=== PATIENT | male | born 1930 | race Caucasian/White ===

== ENCOUNTER → 2016-06-06 | Outpatient (CLI) | payer MEDICARE, BC ==
--- NOTE | 2016-06-06 12:29 | ECHOF ---
Referral Reason:I10 Htn MEASUREMENTS -------- HEIGHT: 167.6 cm WEIGHT: 107.5 kg BP: IVSd: 1.0 cm (0.6 - 1.1) LVIDd: 4.5 cm (3.9 - 5.3) LVPWd: 1.3 cm (0.6 - 1.1) IVSs: 1.2 cm LVIDs: 2.5 cm LVPWs: 1.5 cm Ao Diam: 3.9 cm (2.0 - 3.7) AV Cusp: 2.1 cm (1.5 - 2.6) LA Diam: 2.9 cm (2.7 - 3.8) MV EXCURSION: 13.666 mm (> 18.000) MV EF SLOPE: 48 mm/s (70 - 150) EPSS: 1.0 cm MV E Bebeto: 0.80 m/s MV DecT: 299 ms MV A Bebeto: 1.17 m/s MV E/A Ratio: 0.69 RAP: 5.00 mmHg RVSP: 12.51 mmHg FINDINGS -------- Sinus rhythm. This was a technically adequate study. There is mild concentric left ventricular hypertrophy. Overall left ventricular systolic function is normal with, an EF between 55 - 60 %. The right ventricle is normal in size and function. The left atrium is normal in size. The right atrium is normal in size. The aortic valve is trileaflet, and appears structurally normal. No aortic stenosis or regurgitation. The mitral valve leaflets are mildly thickened. Mild mitral regurgitation is present. Mild tricuspid regurgitation present. The right ventricular systolic pressure, as measured by Doppler, is 12.51mmHg. Pulmonic valve appears structurally normal. The aortic root size is normal. The pericardium is normal. CONCLUSIONS -------- 1. Sinus rhythm. 2. Mild mitral regurgitation is present. 3. Mild tricuspid regurgitation present. 4. The right ventricular systolic pressure, as measured by Doppler, is 12.51mmHg. 5. Pulmonic valve appears structurally normal. 6. The aortic root size is normal. 7. The pericardium is normal. 8. This was a technically adequate study. 9. There is mild concentric left ventricular hypertrophy. 10. Overall left ventricular systolic function is normal with, an EF between 55 - 60 %. 11. The right ventricle is normal in size and function. 12. The left atrium is normal in size. 13. The right atrium is normal in size. 14. The aortic valve is trileaflet, and appears structurally normal. No aortic stenosis or regurgitation. 15. The mitral valve leaflets are mildly thickened. CELERY TIER: Erika Houston RDCS
== END | disposition home or self-care (01) ==
LOC: RADECHMAIN 11:25
PROVIDERS: ATTEND Family Medicine
DX: I08.1 Rheumatic disorders of both mitral and tricuspid valves (principal); I10 Essential (primary) hypertension
CPT/HCPCS: 93306

== ENCOUNTER 2016-06-15 17:00 | Emergency (ER) | payer MEDICARE, BC ==
[2016-06-15 17:34] VITALS: RESP 18
--- NOTE | 2016-06-15 17:49 | ED ---
General Adult HPI - General Chief complaint: Urogenital Stated complaint: Unable to urinate Time Seen by Provider: 06/15/16 17:42 Source: patient, RN notes reviewed Mode of arrival: ambulatory Limitations: no limitations - History of Present Illness Initial comments: Patient is an 85-year-old male who presents emergency room today with chief complaint of urinary retention. He does admit that he is not able to void in the last 5 hours. Patient states that he has had issues in the past does see a urologist Dr. Patterson. States he has had full catheter is in the past. Patient does admit some pressure in lower abdomen. Patient denies infectious symptoms. Patient denies any recent fever, chills, shortness of breath, chest pain, back pain, nausea or vomiting, numbness or tingling, constipation or diarrhea, headaches or visual changes, or any other complaints. - Related Data Home Medications Medication Instructions Recorded Confirmed Albuterol Nebulized [Ventolin 2.5 mg INHALATION RT-QID PRN 06/15/16 06/15/16 Nebulized] Albuterol Sulfate [Proair Hfa] 1 - 2 puff INHALATION RT-Q6H PRN 06/15/16 Atenolol [Tenormin] 25 mg PO DAILY 06/15/16 06/15/16 Budesonide/Formoterol Fumarate 2 puff INHALATION RT-BID 06/15/16 06/15/16 [Symbicort 160-4.5 Mcg Inhaler] Cholecalciferol [Vitamin D3] 2,000 unit PO DAILY 06/15/16 06/15/16 Clopidogrel [Plavix] 75 mg PO DAILY 06/15/16 06/15/16 Furosemide [Lasix] 20 mg PO BID 06/15/16 06/15/16 LORazepam [Ativan] 1 mg PO BID 06/15/16 06/15/16 Lactulose [Constulose] 20 gm PO BID 06/15/16 06/15/16 Minocycline HCl [Minocin] 100 mg PO Q12HR 06/15/16 06/15/16 Psyllium Husk 100% [Metamucil] 6 gm PO BID 06/15/16 06/15/16 Simvastatin [Zocor] 20 mg PO HS 06/15/16 06/15/16 Vitamin B Complex 1 cap PO DAILY 06/15/16 06/15/16 metFORMIN HCL 1,000 mg PO BID 06/15/16 06/15/16 Previous Rx's Medication Instructions Recorded Sulfamethox-Tmp 800-160Mg [Bactrim 1 tab PO Q12HR #14 tab 06/15/16 DS 800-160 mg] Allergies Allergy/AdvReac Type Severity Reaction Status Date / Time aspirin Allergy Unknown Verified 06/15/16 18:05 Review of Systems ROS Statement: Those systems with pertinent positive or pertinent negative responses have been documented in the HPI. ROS Other: All systems not noted in ROS Statement are negative. Past Medical History Past Medical History: Heart Failure, COPD, Diabetes Mellitus, Hypertension History of Any Multi-Drug Resistant Organisms: None Reported Past Surgical History: No Surgical Hx Reported Past Psychological History: No Psychological Hx Reported Smoking Status: Never smoker Past Alcohol Use History: None Reported Past Drug Use History: None Reported General Exam - General Exam Comments Initial Comments: General: The patient is awake and alert, in no distress, and does not appear acutely ill. Eye: Pupils are equal, round and reactive to light, extra-ocular movements are intact. No nystagmus. There is normal conjunctiva bilaterally. No signs of icterus. Ears, nose, mouth and throat: There are moist mucous membranes and no oral lesions. Neck: The neck is supple, there is no tenderness or JVD. Cardiovascular: There is a regular rate and rhythm. No murmur, rub or gallop is appreciated. Respiratory: Lungs are clear to auscultation, respirations are non-labored, breath sounds are equal. No wheezes, stridor, rales, or rhonchi. Gastrointestinal: No appearance or abdomen. Normal bowel sounds. Abdomen soft on palpation. Patient does have mild tenderness suprapubic over the bladder. No rebound tenderness. No guarding. No CVA tenderness. Musculoskeletal: Normal ROM, no tenderness. Strength 5/5. Sensation intact. Pulses equal bilaterally 2+. Neurological: A&O x 3. CN II-XII intact, There are no obvious motor or sensory deficits. Coordination appears grossly intact. Speech is normal. Skin: Skin is warm and dry and no rashes or lesions are noted. Psychiatric: Cooperative, appropriate mood & affect, normal judgment. Limitations: no limitations Course Vital Signs 06/15/16 17:30 Temperature 97.7 F Pulse Rate 69 Respiratory 18 Rate Blood Pressure 167/73 O2 Sat by Pulse 99 Oximetry Medical Decision Making - Medical Decision Making Patient reexamined at this time shows no signs of distress. Patient's bladder scan did show greater than 500 mL. Full catheter was placed. Patient feeling much better after Richards catheter. Abdomen soft nontender. Patient's urinalysis reviewed and does show 14 white cells. Will be started on antibiotic. Given starter pack of Bactrim here in the emergency room. Is advised follow-up with his urologist over the next 2 days. Advised return here to emergency room if any symptoms increase or worsen or for any other concerns. - Lab Data Lab Results 06/15/16 Range/Units 17:55 Urine Color Yellow Urine Appearance Clear (Clear) Urine pH 7.0 (5.0-8.0) Ur Specific [place] 1.008 (1.001-1.035) Urine Protein Negative (Negative) Urine Glucose (UA) Negative (Negative) Urine Ketones Negative (Negative) Urine Blood Negative (Negative) Urine Nitrate Negative (Negative) Urine Bilirubin Negative (Negative) Urine Urobilinogen <2.0 (<2.0) mg/dL Ur Leukocyte Esterase Trace H (Negative) Urine RBC 3 (0-5) /hpf Urine WBC 14 H (0-5) /hpf Ur Squamous Epith Cells 1 (0-4) /hpf Urine Bacteria Rare H (None) /hpf Urine Mucus Rare H (None) /hpf Disposition Clinical Impression: Urinary retention, UTI (urinary tract infection) Disposition: HOME SELF-CARE Condition: Good Instructions: Urinary Retention in Men (ED) Additional Instructions: Please follow-up with the urologist over the next 2 days. Please leave Richards catheter in place until follow-up. Please use antibiotic as prescribed. Please return to emergency room for any other concerns. Prescriptions: Sulfamethox-Tmp 800-160Mg [Bactrim DS 800-160 mg] 1 tab PO Q12HR #14 tab Referrals: Bebeto Gross MD [Primary Care Provider] - 1-2 days Curtis Patterson MD [STAFF PHYSICIAN] - 1-2 days Time of Disposition: 18:51
[2016-06-15 18:43] LABS: Appearance,Urine Clear (Clear); Bacteria,Urine Rare /hpf; Bilirubin,Urine Negative (Negative); Glucose,Urine (UA) Negative (Negative); Ketones,Urine Negative (Negative); Leukocyte Esterase,Urine Trace (Negative); Mucus,Urine Rare /hpf; Nitrite,Urine Negative (Negative); Particle Count 2727; Protein,Urine Negative (Negative); RBC,Urine 3 /hpf (0-5); Specific Gravity,Urine 1.008 (1.001-1.035); Squamous Epithelial Cell,Urine 1 /hpf (0-4); UA Billing (MACRO vs. MICRO) MICRO; Urobilinogen,Urine <2.0 mg/dL (<2.0); WBC,Urine 14 /hpf (0-5)
[2016-06-15] MEDS ORDERED: SULFAMETH-TMP DS STARTER PACK 2 TAB BTL PO STA (18:50)
[2016-06-15 19:09] VITALS: BP 144/65; PULSE 60; TEMP 97.6
== END 2016-06-15 19:09 | disposition home or self-care (01) ==
LOC: EC 17:00
DX: N39.0 Urinary tract infection, site not specified (principal); I50.9 Heart failure, unspecified; I10 Essential (primary) hypertension; J44.9 Chronic obstructive pulmonary disease, unspecified; E11.9 Type 2 diabetes mellitus without complications; Z79.51 Long term (current) use of inhaled steroids; Z79.899 Other long term (current) drug therapy; Z79.02 Long term (current) use of antithrombotics/antiplatelets; Z79.84 Long term (current) use of oral hypoglycemic drugs; Z88.6 Allergy status to analgesic agent
CPT/HCPCS: 51702; 51798; 81001; 87086; 99284

== ENCOUNTER 2016-07-01 09:15 | Emergency (ER) | payer MEDICARE, BC ==
--- NOTE | 2016-07-01 10:37 | ED ---
General Adult HPI - General Chief complaint: Abdominal Pain Stated complaint: Constipation Time Seen by Provider: 07/01/16 10:00 Source: patient, RN notes reviewed Mode of arrival: wheelchair Limitations: no limitations - History of Present Illness Initial comments: This is a 85-year-old male who presents emergency Department complaining that his been constipated over the last 6 days. Patient states this is been an ongoing problem for the last 6 days has not gone at all. Patient denies any nausea vomiting. Patient states he doesn't have any abdominal pain but there is abdominal pressure. Patient states he has been colonoscopy in quite a while. Patient denies any recent fever or chills. Patient denies any chest pain difficult breathing shortness breath. Patient denies any back pain. Patient denies any narcotics. - Related Data Home Medications Medication Instructions Recorded Confirmed Albuterol Nebulized [Ventolin 2.5 mg INHALATION RT-QID PRN 06/15/16 07/01/16 Nebulized] Atenolol [Tenormin] 25 mg PO DAILY 06/15/16 07/01/16 Budesonide/Formoterol Fumarate 2 puff INHALATION RT-BID 06/15/16 07/01/16 [Symbicort 160-4.5 Mcg Inhaler] Cholecalciferol [Vitamin D3] 2,000 unit PO DAILY 06/15/16 07/01/16 Clopidogrel [Plavix] 75 mg PO DAILY 06/15/16 07/01/16 Furosemide [Lasix] 20 mg PO BID 06/15/16 07/01/16 LORazepam [Ativan] 1 mg PO BID 06/15/16 07/01/16 Lactulose [Constulose] 20 gm PO BID 06/15/16 07/01/16 Minocycline HCl [Minocin] 100 mg PO DAILY 06/15/16 07/01/16 Psyllium Husk 100% [Metamucil] 6 gm PO BID 06/15/16 07/01/16 Simvastatin [Zocor] 20 mg PO HS 06/15/16 07/01/16 Vitamin B Complex 1 cap PO DAILY 06/15/16 07/01/16 metFORMIN HCL 1,000 mg PO BID 06/15/16 07/01/16 Rapaflo (Unknown Dose) 1 tab PO DIRECTED 07/01/16 07/01/16 Tamsulosin HCl [Flomax] 0.4 mg PO DAILY 07/01/16 07/01/16 Allergies Allergy/AdvReac Type Severity Reaction Status Date / Time aspirin Allergy Unknown Verified 07/01/16 09:24 Review of Systems ROS Statement: Those systems with pertinent positive or pertinent negative responses have been documented in the HPI. ROS Other: All systems not noted in ROS Statement are negative. Past Medical History Past Medical History: Heart Failure, COPD, Diabetes Mellitus, Hypertension History of Any Multi-Drug Resistant Organisms: None Reported Past Surgical History: No Surgical Hx Reported Past Psychological History: No Psychological Hx Reported Smoking Status: Former smoker Past Alcohol Use History: None Reported Past Drug Use History: None Reported General Exam - General Exam Comments Initial Comments: GENERAL: Patient is well-developed and well-nourished. Patient is nontoxic and well- hydrated and is in mild distress. ENT: Neck is soft and supple. No significant lymphadenopathy is noted. Oropharynx is clear. Moist mucous membranes. Neck has full range of motion without eliciting any pain. EYES: The sclera were anicteric and conjunctiva were pink and moist. Extraocular movements were intact and pupils were equal round and reactive to light. Eyelids were unremarkable. PULMONARY: Unlabored respirations. CARDIOVASCULAR: There is a regular rate and rhythm without any murmurs gallops or rubs. ABDOMEN: Distended abdomen. No pain on palpation SKIN: Skin is clear with no lesions or rashes and otherwise unremarkable. NEUROLOGIC: Patient is alert and oriented x3. Cranial nerves II through XII are grossly intact. Motor and sensory are also intact. MUSCULOSKELETAL: Normal extremities with adequate strength and full range of motion. No lower extremity swelling or edema. No calf tenderness. PSYCHIATRIC: Normal psychiatric evaluation. Limitations: no limitations Course Vital Signs 07/01/16 09:22 Temperature 98.0 F Pulse Rate 70 Respiratory 20 Rate Blood Pressure 159/74 O2 Sat by Pulse 96 Oximetry Medical Decision Making - Medical Decision Making X-ray shows some constipation. Patient received an enema in the emergency department had a fairly large bowel movement and feels better. Disposition Clinical Impression: Constipation Disposition: HOME SELF-CARE Condition: Good Instructions: Constipation (ED), High Fiber Diet (ED) Additional Instructions: Patient can try some milk of magnesia as well and increase his water intake. Referrals: Bebeto Gross MD [Primary Care Provider] - 1-2 days Time of Disposition: 12:48
--- NOTE | 2016-07-01 11:01 | XR ---
EXAMINATION TYPE: XR KUB DATE OF EXAM: 07/01/2016 10:55 AM COMPARISON: 02/01/2013 HISTORY: Pain TECHNIQUE: One view abdominal series FINDINGS: The osseous structures are intact. The bowel gas pattern is nonspecific. Pleural thickening or tiny effusions noted bilaterally. Hypertrophic and degenerative change of the spine. Few prominent bowel l oops in the abdomen are seen. IMPRESSION: 1. Nonspecific abdomen. Ileus or enteritis in the differential. Partial obstruction not entirely exc luded. Correlate clinically. 2. Small bilateral pleural effusions
[2016-07-01 13:02] VITALS: BP 171/77; PULSE 75; RESP 18; TEMP 97.3
== END 2016-07-01 13:09 | disposition home or self-care (01) ==
LOC: EC 09:15
DX: K59.00 Constipation, unspecified (principal); I11.0 Hypertensive heart disease with heart failure; I50.9 Heart failure, unspecified; J44.9 Chronic obstructive pulmonary disease, unspecified; E11.9 Type 2 diabetes mellitus without complications; Z79.02 Long term (current) use of antithrombotics/antiplatelets; Z79.84 Long term (current) use of oral hypoglycemic drugs; Z79.51 Long term (current) use of inhaled steroids; Z79.899 Other long term (current) drug therapy; Z88.6 Allergy status to analgesic agent
CPT/HCPCS: 74000; 99284

== ENCOUNTER 2016-07-13 20:12 | Emergency (ER) | payer MEDICARE, BC ==
[2016-07-13 20:44] VITALS: BP 155/70; PULSE 64; RESP 16; TEMP 97.6
--- NOTE | 2016-07-13 22:20 | ED ---
Abdominal Pain HPI - General Chief Complaint: Abdominal Pain Stated Complaint: Bloating Time Seen by Provider: 07/13/16 21:36 Source: patient, RN notes reviewed Mode of arrival: wheelchair Limitations: no limitations - History of Present Illness Initial Comments: Patient is an 85-year-old male presents to the emergency room for evaluation of abdominal bloating. Patient states he hasn't had a bowel movement since Thursday. Patient does state he has a history of constipation. Patient states that he hasn't been able to pass gas since Thursday. Patient states he tried taking Gas-X with no relief of symptoms. Patient states his abdomen feels uncomfortable secondary to bloating. Patient denies any significant pain. Patient denies any significant abdominal surgeries. Patient denies nausea or vomiting. Patient denies chest pain or shortness of breath. - Related Data Home Medications Medication Instructions Recorded Confirmed Albuterol Nebulized [Ventolin 2.5 mg INHALATION RT-QID PRN 06/15/16 07/13/16 Nebulized] Atenolol [Tenormin] 25 mg PO DAILY 06/15/16 07/13/16 Budesonide/Formoterol Fumarate 2 puff INHALATION RT-BID 06/15/16 07/13/16 [Symbicort 160-4.5 Mcg Inhaler] Cholecalciferol [Vitamin D3] 2,000 unit PO DAILY 06/15/16 07/13/16 Clopidogrel [Plavix] 75 mg PO DAILY 06/15/16 07/13/16 Furosemide [Lasix] 20 mg PO BID 06/15/16 07/13/16 LORazepam [Ativan] 1 mg PO BID 06/15/16 07/13/16 Lactulose [Constulose] 20 gm PO BID 06/15/16 07/13/16 Minocycline HCl [Minocin] 100 mg PO DAILY 06/15/16 07/13/16 Psyllium Husk 100% [Metamucil] 6 gm PO BID 06/15/16 07/13/16 Simvastatin [Zocor] 20 mg PO HS 06/15/16 07/13/16 Vitamin B Complex 1 cap PO DAILY 06/15/16 07/13/16 metFORMIN HCL 1,000 mg PO BID 06/15/16 07/13/16 Rapaflo (Unknown Dose) 1 tab PO DIRECTED 07/01/16 07/13/16 Tamsulosin HCl [Flomax] 0.4 mg PO DAILY 07/01/16 07/13/16 Allergies Allergy/AdvReac Type Severity Reaction Status Date / Time aspirin Allergy Unknown Verified 07/13/16 20:44 Review of Systems ROS Statement: Those systems with pertinent positive or pertinent negative responses have been documented in the HPI. ROS Other: All systems not noted in ROS Statement are negative. Past Medical History Past Medical History: Heart Failure, COPD, Diabetes Mellitus, Hypertension History of Any Multi-Drug Resistant Organisms: None Reported Past Surgical History: No Surgical Hx Reported Past Psychological History: No Psychological Hx Reported Smoking Status: Former smoker Past Alcohol Use History: None Reported Past Drug Use History: None Reported General Exam - General Exam Comments Initial Comments: Sitting in exam room, no acute distress. Limitations: no limitations General appearance: alert, in no apparent distress Head exam: Present: atraumatic, normocephalic, normal inspection Eye exam: Present: normal appearance ENT exam: Present: normal exam Neck exam: Present: normal inspection Respiratory exam: Present: normal lung sounds bilaterally. Absent: respiratory distress Cardiovascular Exam: Present: regular rate, normal rhythm, normal heart sounds GI/Abdominal exam: Present: distended, hyperactive bowel sounds. Absent: tenderness, guarding, rebound, rigid Extremities exam: Present: normal inspection Back exam: Present: normal inspection Neurological exam: Present: alert, oriented X3, CN II-XII intact, normal gait Psychiatric exam: Present: normal affect, normal mood Skin exam: Present: warm, dry, intact, normal color. Absent: rash Course Vital Signs 07/13/16 20:39 Temperature 97.6 F Pulse Rate 64 Respiratory 16 Rate Blood Pressure 155/70 O2 Sat by Pulse 94 L Oximetry Medical Decision Making - Medical Decision Making Patient is a 85-year-old male presents to the emergency room for evaluation of abdominal bloating. CT abdomen/pelvis shows no sniffing fightings besides fecal retention. Patient given enema. Patient had a large bowel movement and had significant relief. Patient states he is feeling much better like to be discharged home. Advised patient to drink plenty of water and to continue taking MiraLAX daily. Patient states he understands everything that was discussed with him. Return parameters discussed. Case discussed with Dr. Morrow. - Lab Data Result diagrams: 07/13/16 22:30 07/13/16 22:30 Lab Results 07/13/16 07/13/16 Range/Units 22:30 22:30 WBC 5.3 (3.8-10.6) k/uL RBC 3.98 L (4.30-5.90) m/uL Hgb 13.2 (13.0-17.5) gm/dL Hct 38.9 L (39.0-53.0) % MCV 97.9 (80.0-100.0) fL MCH 33.2 (25.0-35.0) pg MCHC 33.9 (31.0-37.0) g/dL RDW 14.1 (11.5-15.5) % Plt Count 293 (150-450) k/uL Neutrophils % 76 % Lymphocytes % 13 % Monocytes % 5 % Eosinophils % 3 % Basophils % 0 % Neutrophils # 4.0 (1.3-7.7) k/uL Lymphocytes # 0.7 L (1.0-4.8) k/uL Monocytes # 0.3 (0-1.0) k/uL Eosinophils # 0.2 (0-0.7) k/uL Basophils # 0.0 (0-0.2) k/uL Sodium 126 L (137-145) mmol/L Potassium 4.5 (3.5-5.1) mmol/L Chloride 89 L (98-107) mmol/L Carbon Dioxide 29 (22-30) mmol/L Anion Gap 8 mmol/L BUN 8 L (9-20) mg/dL Creatinine 0.75 (0.66-1.25) mg/dL Est GFR (MDRD) Af Amer >60 (>60 ml/min/1.73 sqM) Est GFR (MDRD) Non-Af >60 (>60 ml/min/1.73 sqM) Glucose 107 H (74-99) mg/dL Calcium 9.5 (8.4-10.2) mg/dL Total Bilirubin 0.7 (0.2-1.3) mg/dL AST 27 (17-59) U/L ALT 30 (21-72) U/L Alkaline Phosphatase 70 (38-126) U/L Total Protein 6.6 (6.3-8.2) g/dL Albumin 4.1 (3.5-5.0) g/dL Amylase 60 (30-110) U/L Lipase 150 (23-300) U/L - Radiology Data Radiology results: report reviewed, image reviewed Disposition Clinical Impression: Constipation Disposition: HOME SELF-CARE Condition: Good Instructions: Constipation (ED), High Fiber Diet (ED) Additional Instructions: Drink plenty of water. Please follow up with primary care provider in 1-2 days. If any new symptom arises or symptoms worsen, return to ER as soon as possible. Referrals: Bebeto Gross MD [Primary Care Provider] - 1-2 days Time of Disposition: 01:30
[2016-07-13] MEDS: RX INFO: IV CONTRAST WAS GIVEN 1 EACH MISC MISCELLANE PRN (22:31)
[2016-07-13 22:40] LABS: Basophils % (A) 0 %; CH 34.2; CHCM 35.1; Eosinophils # (A) 0.2 k/uL (0-0.7); Eosinophils % (A) 3 %; HCT 38.9 % (39.0-53.0); HDW 2.78; HGB 13.2 gm/dL (13.0-17.5); Luc # (Auto) 0.16; Luc % (Auto) 3; Lymphocytes # (A) 0.7 k/uL (1.0-4.8); Lymphocytes % (A) 13 %; MCH 33.2 pg (25.0-35.0); MCHC 33.9 g/dL (31.0-37.0); MCV 97.9 fL (80.0-100.0); Mean Platelet Volume 6.4; Monocytes # (A) 0.3 k/uL (0-1.0); Monocytes % (A) 5 %; Neutrophils % (A) 76 %; RBC 3.98 m/uL (4.30-5.90); RDW 14.1 % (11.5-15.5); WBC 5.3 k/uL (3.8-10.6); WBC (Perox) 5.15
[2016-07-13 22:47] LABS: ALT 30 U/L (21-72); AST 27 U/L (17-59); Alkaline Phosphatase 70 U/L (38-126); Amylase 60 U/L (30-110); Anion Gap 8 mmol/L; Blood Urea Nitrogen 8 mg/dL (9-20); Calcium 9.5 mg/dL (8.4-10.2); Carbon Dioxide 29 mmol/L (22-30); Chloride 89 mmol/L (98-107); Glucose 107 mg/dL (74-99); Non-African American GFR(MDRD) >60 (>60 ml/min/1.73 sqM); Potassium 4.5 mmol/L (3.5-5.1); Sodium 126 mmol/L (137-145); Total Bilirubin 0.7 mg/dL (0.2-1.3); Total Protein 6.6 g/dL (6.3-8.2)
--- NOTE | 2016-07-14 00:12 | CT ---
EXAM: CT Abdomen and Pelvis With Intravenous Contrast. CLINICAL HISTORY: Reason: Pain TECHNIQUE: Axial computed tomography images of the abdomen and pelvis with intravenous contrast. Coronal and sagittal reformats were obtained. CTDI is 25.70 and 29.40 (delays) MGy and DLP is 1274.80 and 953.30 (delays) mGy-cm COMPARISON: Abdominal radiographs 07/01/16 FINDINGS: Lower thorax: No acute findings. ABDOMEN: Liver: Unremarkable. No mass. Gallbladder and bile ducts: Unremarkable. No calcified stones. No ductal dilation. Pancreas: Unremarkable. No mass. No ductal dilation. Spleen: Few tiny subcentimeter hypodensities in the spleen, too small to characterize but most likely cysts. Adrenals: Unremarkable. No mass. Kidneys and ureters: Minimally complex cyst in the left kidney measuring 1.3 cm with thick peripheral calcification. Small bilateral renal cysts. Stomach and bowel: Moderate amount retained stool in the colon. Few scattered colonic diverticula without evidence of diverticulitis. No obstruction. Appendix: Appendix is not seen. No right lower quadrant inflammatory changes to suggest appendicitis. PELVIS: Bladder: Small diverticulum arising from the bladder dome on the left. Reproductive: Unremarkable as visualized. ABDOMEN and PELVIS: Intraperitoneal space: Unremarkable. No free air. No significant fluid collection. Bones/joints: No acute fracture Vasculature: No abdominal aortic aneurysm. Lymph nodes: Unremarkable. No enlarged lymph nodes. IMPRESSION: 1. No acute findings. 2. Moderate amount of retained stool in the colon, suggesting constipation. 3. Minimally complex cyst in the left kidney measuring 1.3 cm with thick peripheral calcification. Recommend six-month follow-up ultrasound or CT.
[2016-07-14] MEDS ORDERED: SODIUM CHLORIDE 0.9% 1,000 ML IV ONE (00:36)
[2016-07-14] MEDS: RX INFO: IV CONTRAST WAS GIVEN 1 EACH MISC MISCELLANE PRN (00:43)
== END 2016-07-14 01:42 | disposition home or self-care (01) ==
LOC: EC 20:12
DX: K59.00 Constipation, unspecified (principal); I10 Essential (primary) hypertension; E11.9 Type 2 diabetes mellitus without complications; J44.9 Chronic obstructive pulmonary disease, unspecified; Z79.899 Other long term (current) drug therapy; Z79.84 Long term (current) use of oral hypoglycemic drugs; Z79.51 Long term (current) use of inhaled steroids; Z79.01 Long term (current) use of anticoagulants; Z87.891 Personal history of nicotine dependence; Z88.6 Allergy status to analgesic agent
CPT/HCPCS: 36415; 80053; 82150; 83690; 85025; 74177; 99284; 96360; Q9967

== ENCOUNTER → 2016-08-07 | Outpatient (CLI) | payer MEDICARE, BC ==
--- NOTE | 2016-08-07 07:49 | US ---
EXAMINATION TYPE: US abdomen complete DATE OF EXAM: 08/07/2016 7:18 AM COMPARISON: CT 2017 CLINICAL HISTORY: Abd Pain R10.9. back pain gassy EXAM MEASUREMENTS: Liver Length: 16.1 cm Gallbladder Wall: 0.2 cm CBD: 0.2 cm Spleen: 9.5 cm Right Kidney: 9.9 x 4.3 x 5.1 cm Left Kidney: 10.5 x 4.9 x 4.6 cm Pancreas: overlying bowel gas, large body habitus Liver: lportion seen wnl Gallbladder: wnl Evidence for sonographic Mooney's sign: no CBD: wnl Spleen: large body habitus , Right Kidney: small cyst mid/upper portion 1.2 x 1.8 x 1.4 cm Left Kidney: 1.4 x 1.8 x 1.1 cm calcified mass lateral lower pole Upper IVC: wnl Abd Aorta: overlying bowel gas, large body habitus The liver is homogenous. The intrahepatic portion of the IVC and proximal abdominal aorta are within normal limits. There is no evidence of cholelithiasis. Common bile duct is unremarkable. The visu alized portions of the pancreas are homogenous. The spleen is unremarkable. Kidneys are symmetric a nd free of hydronephrosis. Simple appearing cyst midpole right kidney measures approximately 1.8 cm i n greatest dimension. Simple cyst lower pole left kidney measures approximately 2.5 cm. There is also a small calcified cystic lesion measuring 1.8 cm in greatest dimension. IMPRESSION: 1. Renal cystic changes.
== END | disposition home or self-care (01) ==
LOC: RADUSWWP 06:48
PROVIDERS: ATTEND Family Medicine
DX: N28.1 Cyst of kidney, acquired (principal)
CPT/HCPCS: 76700

== ENCOUNTER 2016-09-01 09:56 | Inpatient (IN) | payer MEDICARE, BC ==
[2016-09-01] MEDS ORDERED: HYDROcodone/APAP 5-325MG 1 EACH TAB PO STA (10:14)
--- NOTE | 2016-09-01 10:31 | ED ---
General Adult HPI - General Chief complaint: Fall Stated complaint: Fall Time Seen by Provider: 09/01/16 10:10 Source: patient, RN notes reviewed, old records reviewed Mode of arrival: EMS Limitations: no limitations - History of Present Illness Initial comments: 85-year-old male presenting after mechanical fall at home. Patient states he was walking outside this morning and tripped on a step falling forward onto the ground. He states he hit his right chest and shoulder as well as his forehead on the ground. He denies loss consciousness. He states he takes Plavix but no other blood thinners. He states he was able to crawl back into his house and call for help. He was brought to the emergency room. He denies any syncope preceding the event. He states he is now having pain in his right upper ribs, worse with breathing. He denies any substernal chest pain. He denies any headache. He does state that he feels a bump on his right forehead. - Related Data Home Medications Medication Instructions Recorded Confirmed Albuterol Nebulized [Ventolin 2.5 mg INHALATION RT-QID PRN 06/15/16 09/01/16 Nebulized] Atenolol [Tenormin] 25 mg PO BID 06/15/16 09/01/16 Budesonide/Formoterol Fumarate 2 puff INHALATION RT-BID 06/15/16 09/01/16 [Symbicort 160-4.5 Mcg Inhaler] Cholecalciferol [Vitamin D3] 2,000 unit PO DAILY 06/15/16 09/01/16 Clopidogrel [Plavix] 75 mg PO DAILY 06/15/16 09/01/16 LORazepam [Ativan] 1 mg PO TID 06/15/16 09/01/16 Lactulose [Constulose] 20 gm PO BID 06/15/16 09/01/16 Minocycline HCl [Minocin] 100 mg PO DAILY 06/15/16 09/01/16 Simvastatin [Zocor] 20 mg PO HS 06/15/16 09/01/16 Vitamin B Complex 1 cap PO DAILY 06/15/16 09/01/16 metFORMIN HCL 1,000 mg PO BID 06/15/16 09/01/16 Tamsulosin HCl [Flomax] 0.4 mg PO DAILY 07/01/16 09/01/16 Finasteride [Proscar] 5 mg PO DAILY 09/01/16 09/01/16 Furosemide [Lasix] 40 mg PO DAILY 09/01/16 09/01/16 Allergies Allergy/AdvReac Type Severity Reaction Status Date / Time aspirin Allergy Unknown Verified 09/01/16 10:30 Review of Systems ROS Statement: Those systems with pertinent positive or pertinent negative responses have been documented in the HPI. ROS Other: All systems not noted in ROS Statement are negative. Past Medical History Past Medical History: Heart Failure, COPD, Diabetes Mellitus, Hypertension History of Any Multi-Drug Resistant Organisms: None Reported Past Surgical History: No Surgical Hx Reported Past Psychological History: No Psychological Hx Reported Smoking Status: Former smoker Past Alcohol Use History: None Reported Past Drug Use History: None Reported General Exam - General Exam Comments Initial Comments: General: Awake and Alert. No acute distress. Does not appear acutely ill. Eyes: RUSSELL, EOM intact. No nystagmus. No scleral icterus. HENT: Normocephalic. Abrasion to right forehead. Mucous membranes moist. Trachea midline. No hemotympanum. No epistaxis or septal deviation or hematoma. Neck: The neck is supple, there is no tenderness or JVD. Cardiovascular: Regular rate and rhythm. No murmur, rub, or gallop is appreciated. Distal pulses intact, radial 2+ bilateral. Respiratory: Lungs are clear to auscultation bilaterally. No wheezes, rales, rhonchi. No respiratory distress. Gastrointestinal: Soft, Nontender. No rebound or guarding. Non-distended. No masses or organomegaly noted. No CVA tenderness. Musculoskeletal: Tenderness over the right upper anterior lateral ribs. No crepitance. No flail segment. No midline back or neck tenderness. Right shoulder without tenderness and normal range of motion. No gross deformity. No strength deficits. Neurological: A&Ox3. CN II-XII grossly intact, There are no obvious motor or sensory deficits. Coordination appears grossly intact. Speech is normal. Skin: Skin is warm and dry and no rashes or lesions are noted. Psychiatric: Cooperative, appropriate mood & affect, normal judgment. Limitations: no limitations Course Vital Signs 09/01/16 09/01/16 09/01/16 10:03 11:51 11:59 Temperature 97.8 F Pulse Rate 76 67 72 Respiratory 16 Rate Blood Pressure 167/74 O2 Sat by Pulse 95 Oximetry 09/01/16 12:24 Temperature 98 F Pulse Rate 70 Respiratory 20 Rate Blood Pressure 141/62 O2 Sat by Pulse 98 Oximetry EKG Findings - EKG Comments: EKG Findings:: EKG 11:52. Normal sinus rhythm. Rate 66. Normal axis. No STEMI. Normal EKG. Medical Decision Making - Medical Decision Making 85 y/o male with history of COPD presenting after mechanical fall. Pt with pain to right upper chest. Concern for rib fracture. Also with head injury. Imaging ordered. Pain medication ordered. Vitals stable, no hypoxia. CT head no acute bleed Pelvis XR no acute fracture Rib XR with right 5/6 rib fractures, no pneumothorax Pt reevaluated, still with pain, additional meds ordered. Updated on imaging. Discussed rib fractures and recommendation for admission given his history of COPD, active shortness of breath, and rib fractures in the elderly. Patient is agreeable with this. Lab work added on. Discussed with Dr. Del Rosario, agrees with trauma admission. Requests consults to pulmonology and anesthesia. - Lab Data Result diagrams: 09/01/16 12:15 09/01/16 12:15 - EKG Data -: EKG Interpreted by Nv EKG shows normal: sinus rhythm Rate: normal - Radiology Data Radiology results: report reviewed, image reviewed Disposition Clinical Impression: COPD (chronic obstructive pulmonary disease), Fall, Rib fractures, Head injury Disposition: [facility] Condition: Stable Decision to Admit Reason: Admit from EC
--- NOTE | 2016-09-01 11:09 | XR ---
EXAMINATION TYPE: XR pelvis AP view DATE OF EXAM: 09/01/2016 10:58 AM CLINICAL HISTORY: pain TECHNIQUE: Single view the pelvis is submitted. FINDINGS: No evidence for fracture, dislocation or bony lesion. Joint spaces are mildly narrowed. V ascular calcifications identified.. SI joints appear symmetric. IMPRESSION: 1. No acute fracture or dislocation seen. ICD 10 NO FRACTURE, INITIAL EVALUATION
--- NOTE | 2016-09-01 11:12 | XR ---
EXAMINATION TYPE: XR ribs RT w pa chest xray DATE OF EXAM: 09/01/2016 10:58 AM COMPARISON: 02/20/2011 HISTORY: Pain TECHNIQUE: Single view of the chest 4 views of the ribs are submitted. FINDINGS: Scattered senescent parenchymal changes are noted. No Evidence for pneumothorax. No eviden ce for focal contusion. Mediastinal structures are midline. Evaluation of the ribs demonstrates Fra ctures of of right ribs 5 and 6. IMPRESSION: 1. Fractures of of right ribs 5 and 6. No pneumothorax identified.
--- NOTE | 2016-09-01 11:14 | CT ---
EXAMINATION TYPE: CT brain wo con DATE OF EXAM: 09/01/2016 10:43 AM COMPARISON: Prior head CT dated 15 June 2009 HISTORY: Patient fell and hit head today. Patient denies head complaints at time of study. CT DLP: 1079 mGycm Automated exposure control for dose reduction was used. FINDINGS: There is no acute intracranial hemorrhage, mass effect, or midline shift identified. The ventricles and sulci are within normal limits in size. Cerebral vascular calcifications are present. There is c ortical atrophy. Periventricular white matter shows patchy low attenuation likely due to chronic smal l vessel ischemia. The globes are intact and the visualized sinuses are remarkable for inflammatory c hange in the ethmoid air cells.. IMPRESSION: No acute intracranial hemorrhage, mass effect, or midline shift is seen.
[2016-09-01] MEDS ORDERED: MORPHINE SULFATE 4 MG/ML SYRINGE IVP STA (11:22)
[2016-09-01] MEDS ORDERED: IPRATROPIUM-ALBUTEROL 3 ML NEB INHALATION STA (11:23)
[2016-09-01] MEDS ORDERED: NALOXONE 0.4 MG/ML 1 ML VIAL IV PRN (12:14)
[2016-09-01] MEDS ORDERED: ACETAMINOPHEN TAB 325 MG TAB PO PRN (12:14)
[2016-09-01] MEDS ORDERED: ONDANSETRON 4 MG/2 ML VIAL IVP PRN (12:14)
[2016-09-01 12:32] LABS: Basophils % (A) 0 %; CH 34.3; CHCM 34.9; Eosinophils # (A) 0.1 k/uL (0-0.7); Eosinophils % (A) 1 %; HCT 38.6 % (39.0-53.0); HDW 2.75; HGB 13.3 gm/dL (13.0-17.5); Luc # (Auto) 0.11; Luc % (Auto) 1; Lymphocytes # (A) 0.4 k/uL (1.0-4.8); Lymphocytes % (A) 4 %; MCH 34.1 pg (25.0-35.0); MCHC 34.5 g/dL (31.0-37.0); MCV 98.7 fL (80.0-100.0); Mean Platelet Volume 6.5; Monocytes # (A) 0.3 k/uL (0-1.0); Monocytes % (A) 3 %; Neutrophils # (A) 9.6 k/uL (1.3-7.7); Neutrophils % (A) 91 %; RBC 3.91 m/uL (4.30-5.90); RDW 13.7 % (11.5-15.5); WBC 10.5 k/uL (3.8-10.6)
[2016-09-01 12:42] LABS: Anion Gap 5 mmol/L; Blood Urea Nitrogen 14 mg/dL (9-20); Calcium 9.4 mg/dL (8.4-10.2); Carbon Dioxide 31 mmol/L (22-30); Chloride 91 mmol/L (98-107); Glucose 116 mg/dL (74-99); Non-African American GFR(MDRD) >60 (>60 ml/min/1.73 sqM); Potassium 4.8 mmol/L (3.5-5.1); Sodium 127 mmol/L (137-145)
[2016-09-01 13:24] LABS: Prothrombin Time 10.2 sec (9.0-12.0)
[2016-09-01 13:33] LABS: Partial Thromboplastin Time 22.4 sec (22.0-30.0)
[2016-09-01] MEDS: HYDROcodone/APAP 5-325MG 1 EACH TAB PO PRN ×2 (14:54→20:13)
[2016-09-01] MEDS ORDERED: LACTULOSE 20 GM/30 ML CUP PO PRN (16:04)
[2016-09-01] MEDS: MORPHINE SULFATE 4 MG/ML SYRINGE IV PRN (16:43)
--- NOTE | 2016-09-01 17:02 | P.GSHP ---
History of Present Illness H&P Date: 09/01/16 Chief Complaint: Right rib fifth and sixth fracture This 85-year-old male who is admitted through the emergency room. Patient fell at home. He denies any loss of consciousness. He had tenderness on his right chest wall. His workup revealed that he had right fifth and sixth rib fractures. He's been admitted to the hospital for analgesia area the patient has History of COPD - Constitutional Constitutional: Reports as per HPI Past Medical History Past Medical History: Heart Failure, COPD, Diabetes Mellitus, Hypertension Additional Past Medical History / Comment(s): recently on steroids and abx for bronchits."cyst on both kidneys", no cpap used, skin ca lip(removed), peptic ulcer disease, stated had episodes of ulcerative colitis in past but recently experiencing constipation. 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 Past Anesthesia/Blood Transfusion Reactions: Previous Problems w/ Anesthesia Additional Past Anesthesia/Blood Transfusion Reaction / Comment(s): "after a sx had trouble keeping bp up" Past Psychological History: No Psychological Hx Reported Additional Psychological History / Comment(s): PT IS A , IN 2013. PT LIVES IN OWN SINGLE STORY HOME THAT HAS 1 STEP IN WHICH TO ENTER. NO PERS. DOES'NT DRIVE. SON OR WIFES COUSIN TAKES HIM PLACES. NO OUTSIDE SERVICES. HAS NEBULIZER, CANE, WALKER AT HOME. Smoking Status: Former smoker Past Alcohol Use History: None Reported Additional Past Alcohol Use History / Comment(s): started smoking age 11-( 1942 ) and quit 1986 . started to chew tobacco in 1952 adarsh ge 21 and quit 2013. pt stated he is an alocoholic-quit 30 years ago(1986) Past Drug Use History: None Reported - Past Family History Father History Unknown: Yes Additional Family Medical History / Comment(s): pt stated he left home at age 13 never went back. Mother History Unknown: Yes Medications and Allergies Home Medications Medication Instructions Recorded Confirmed Type Albuterol Nebulized [Ventolin 2.5 mg INHALATION RT-QID PRN 06/15/16 09/01/16 History Nebulized] Atenolol [Tenormin] 25 mg PO BID 06/15/16 09/01/16 History Budesonide/Formoterol Fumarate 2 puff INHALATION RT-BID 06/15/16 09/01/16 History [Symbicort 160-4.5 Mcg Inhaler] Cholecalciferol [Vitamin D3] 2,000 unit PO DAILY 06/15/16 09/01/16 History Clopidogrel [Plavix] 75 mg PO DAILY 06/15/16 09/01/16 History LORazepam [Ativan] 1 mg PO TID 06/15/16 09/01/16 History Lactulose [Constulose] 20 gm PO BID 06/15/16 09/01/16 History Minocycline HCl [Minocin] 100 mg PO DAILY 06/15/16 09/01/16 History Simvastatin [Zocor] 20 mg PO HS 06/15/16 09/01/16 History Vitamin B Complex 1 cap PO DAILY 06/15/16 09/01/16 History metFORMIN HCL 1,000 mg PO BID 06/15/16 09/01/16 History Tamsulosin HCl [Flomax] 0.4 mg PO DAILY 07/01/16 09/01/16 History Finasteride [Proscar] 5 mg PO DAILY 09/01/16 09/01/16 History Furosemide [Lasix] 40 mg PO DAILY 09/01/16 09/01/16 History Allergies Allergy/AdvReac Type Severity Reaction Status Date / Time aspirin Allergy Unknown Verified 09/01/16 10:30 Surgical - Exam Vital Signs Temp Pulse Resp BP Pulse Ox 97.8 F 76 16 167/74 95 09/01/16 10:03 09/01/16 10:03 09/01/16 10:03 09/01/16 10:03 09/01/16 10:03 - General well developed, no distress - Eyes PERRL - ENT normal pinna - Neck no masses - Respiratory normal expansion - Cardiovascular Rhythm: regular - Abdomen Abdomen: soft, non tender - Psychiatric oriented to time Right chest wall tenderness. Results - Labs 09/01/16 12:15 09/01/16 12:15 Abnormal Lab Results - Last 24 Hours (Table) 09/01/16 09/01/16 Range/Units 12:15 12:15 RBC 3.91 L (4.30-5.90) m/uL Hct 38.6 L (39.0-53.0) % Neutrophils # 9.6 H (1.3-7.7) k/uL Lymphocytes # 0.4 L (1.0-4.8) k/uL Sodium 127 L (137-145) mmol/L Chloride 91 L (98-107) mmol/L Carbon Dioxide 31 H (22-30) mmol/L Glucose 116 H (74-99) mg/dL Diabetes panel 09/01/16 Range/Units 12:15 Sodium 127 L (137-145) mmol/L Potassium 4.8 (3.5-5.1) mmol/L Chloride 91 L (98-107) mmol/L Carbon Dioxide 31 H (22-30) mmol/L BUN 14 (9-20) mg/dL Creatinine 0.75 (0.66-1.25) mg/dL Glucose 116 H (74-99) mg/dL Calcium 9.4 (8.4-10.2) mg/dL Calcium panel 09/01/16 Range/Units 12:15 Calcium 9.4 (8.4-10.2) mg/dL Pituitary panel 09/01/16 Range/Units 12:15 Sodium 127 L (137-145) mmol/L Potassium 4.8 (3.5-5.1) mmol/L Chloride 91 L (98-107) mmol/L Carbon Dioxide 31 H (22-30) mmol/L BUN 14 (9-20) mg/dL Creatinine 0.75 (0.66-1.25) mg/dL Glucose 116 H (74-99) mg/dL Calcium 9.4 (8.4-10.2) mg/dL Adrenal panel 09/01/16 Range/Units 12:15 Sodium 127 L (137-145) mmol/L Potassium 4.8 (3.5-5.1) mmol/L Chloride 91 L (98-107) mmol/L Carbon Dioxide 31 H (22-30) mmol/L BUN 14 (9-20) mg/dL Creatinine 0.75 (0.66-1.25) mg/dL Glucose 116 H (74-99) mg/dL Calcium 9.4 (8.4-10.2) mg/dL Assessment and Plan Plan: Right rib fifth and sixth fracture secondary to fall. Patient will be observed in the hospital. Anesthesia has been consult for possible pain management. Pulmonary results been consult.
[2016-09-01 17:13] LABS: Glucose,Whole Blood 134 mg/dL (75-99)
[2016-09-01] MEDS: SODIUM CHLORIDE 0.9% 1,000 ML IV SCH (17:35)
[2016-09-01] MEDS: INSULIN LISPRO (humaLOG) 300 UNIT/3 ML VIAL SQ SCH ×2 (17:39→21:24)
[2016-09-01] MEDS: ATORVASTATIN 10 MG TAB PO SCH (20:15)
[2016-09-01] MEDS: ATENOLOL 25 MG TAB PO SCH (20:16)
[2016-09-01] MEDS: HEPARIN SODIUM,PORCINE 5,000 UNIT/ML 1 ML VIAL SQ SCH (20:16)
[2016-09-01] MEDS: LORazepam 1 MG TAB PO PRN (20:22)
[2016-09-01 21:06] LABS: Hemoglobin A1C 5.2 % (4.2-6.1)
[2016-09-01 21:15] LABS: Glucose,Whole Blood 165 mg/dL (75-99)
[2016-09-01] MEDS: metFORMIN 500 MG TAB PO SCH (21:31)
[2016-09-01] MEDS: ZOLPIDEM 5 MG TAB PO PRN (21:37)
[2016-09-01] MEDS: SYMBICORT 160-4.5 MCG INHALER INHALATION SCH ×2 (23:42→23:59)
[2016-09-02] MEDS: MORPHINE SULFATE 4 MG/ML SYRINGE IV PRN ×5 (04:12→21:59)
[2016-09-02 07:38] LABS: Glucose,Whole Blood 107 mg/dL (75-99)
[2016-09-02] MEDS: SYMBICORT 160-4.5 MCG INHALER INHALATION SCH ×2 (07:50→19:21)
[2016-09-02] MEDS: INSULIN LISPRO (humaLOG) 300 UNIT/3 ML VIAL SQ SCH ×4 (07:58→21:49)
[2016-09-02] MEDS: FINASTERIDE 5 MG TAB PO SCH (08:06)
[2016-09-02] MEDS: ATENOLOL 25 MG TAB PO SCH ×2 (08:06→21:48)
[2016-09-02] MEDS: FUROSEMIDE 40 MG TAB PO SCH (08:06)
[2016-09-02] MEDS: metFORMIN 500 MG TAB PO SCH ×2 (08:07→21:49)
[2016-09-02] MEDS: TAMSULOSIN 0.4 MG CAP.ER.24H PO SCH (08:07)
[2016-09-02] MEDS: HEPARIN SODIUM,PORCINE 5,000 UNIT/ML 1 ML VIAL SQ SCH ×2 (08:07→21:48)
[2016-09-02] MEDS: MINOCYCLINE 50 MG CAP PO SCH (08:07)
--- NOTE | 2016-09-02 09:19 | P.CON ---
Consult Note - . Consult date: 09/02/16 Assessment/Plan:: Patient seen and examined, chart reviewed and medical/surgical/social/family history and allergies noted. Mr. Andres is an 85 year old male with recent fall and severe right sided back and flank pain. Chest X-ray demonstrated rib fractures at ribs five and six on the right side. Patient complains of severe pain in this area and it is tender to palpation on exam. Anesthesia consult was placed for possible thoracic epidural placement, but patient takes Plavix regularly. When asked why he takes this and if he has history of irregular heartbeat or of any stents, he denies it. He does note that he had ME in 1996 and was placed on Plavix at that time because he is allergic to aspirin. As the patient's pain is severe, he could benefit from intercostal nerve blocks during his recovery. That said, given that he took his Plavix yesterday (09/01/16 ), it would be advisable to wait at least 24 more hours prior to performing this procedure. For today, if OK with medical team, given normal creatinine level, recommend starting ketorolac 15-30 mg up to q6h prn breakthrough pain. NSAIDs are typically more helpful than opioids in the context of acute rib fractures. I will discuss the anticoagulation with my partner, Dr. Carey, and if the patient is still having persistent pain not controlled with medications, our service will tentatively plan to perform right sided intercostal nerve blocks under fluoroscopy tomorrow morning. Please plan to hold all anticoagulation in AM and keep NPO after midnight, and please call back with any further questions.
[2016-09-02] MEDS: HYDROcodone/APAP 5-325MG 1 EACH TAB PO PRN (10:56)
--- NOTE | 2016-09-02 11:13 | CONS ---
DATE OF CONSULTATION: This is an 85-year-old male who I am asked to see because of a fall at home. It was a ground-level fall. Apparently he tripped on a step falling forward onto the ground. He apparently hit his right chest against either the ground or the door frame. He is not sure. He denies a loss of consciousness. His injuries included a bruise or injury contusion to the right forehead area as well as injury to the right lateral chest area. On x-rays, he was found to have right fifth and sixth rib fractures. He states that the primary issue right now is pain. He has got pain to his right forehead above his eye and also pain to the right chest area. Denies any shortness of breath. No chest discomfort other than that. No other injuries apparently. No loss of consciousness. No history of any seizure. He had a CT scan of the brain which was negative. He had a pelvic x-ray that was negative. Feeling a bit better today. His home medications included Ventolin updrafts, Tenormin, Symbicort, vitamin D3, Plavix, Ativan, lactulose, Minocin, Zocor, metformin, Flomax, Proscar and Lasix. Allergies are ASPIRIN. Medical history includes COPD, heart failure, diabetes, hypertension, hyperlipidemia, chronic constipation. Surgical history is noncontributory or remote. Social history is positive for previous tobacco use. Denies any alcohol use. No illicit drug use. Occupational and family history is noncontributory. REVIEW OF SYSTEMS: CONSTITUTIONAL: Negative. NEUROLOGICAL: Negative. HEENT: Negative. CARDIOVASCULAR: Negative. PULMONARY: Shortness of breath, right lateral chest wall pain. GI/: Negative. RHEUMATOLOGICAL/IMMUNOLOGIC: Negative. ENDOCRINOLOGIC: Negative. Current vital signs include temperature 97.8, heart rate 65, respiratory rate 20, blood pressure 133/63, mean 86, room air saturation is 98%. The patient remains on 2 L nasal O2. Appears in no acute distress. HEENT examination is grossly unremarkable. Mucous membranes are moist. No oral lesions. NECK: Supple. Full range of motion. No adenopathy or thyromegaly. There is some small developing contusion above the right eye. Cardiovascular examination reveals regular rhythm and rate. S1, S2 normal. No S3, S4 or murmur. Lungs reveal diminished breath sounds. Cannot take a real deep breath. Its limited by pain. Breath sounds are clear. No wheezes, rhonchi or crackles. ABDOMEN: Soft. Bowel sounds are heard. No masses or tenderness. Extremities are intact. No cyanosis, clubbing or edema. Skin without rash. Neurologic examination is nonfocal. X-rays have been mentioned. Labs are reviewed. White count 10.5, hemoglobin is 13.3, hematocrit 38.6, platelet count is normal. PT, INR, PTT normal. Sodium 127, potassium 4.8, chloride 91, CO2 of 31. The rest of his labs look okay. Currently, he is on albuterol updrafts and he is on Symbicort and some pain medication and the one thing I really do not see especially at the bedside when I was in the room was an incentive spirometer so I will go ahead and order that. ASSESSMENT: 1. Status post ground-level fall with a small bruise/contusion to his right forehead area as well as fractures on the right side position 5 and 6. 2. No evidence at this time to suggest pulmonary contusion, hemothorax, or additional chest trauma. 3. Multiple medical problems and comorbidities as listed above including, heart failure, COPD, diabetes, hypertension, and hyperlipidemia. PLAN: I will add an incentive spirometer to the program. Will continue to follow. No additional recommendations are made.
[2016-09-02 11:17] VITALS: BMI 37.4
[2016-09-02 11:54] LABS: Glucose,Whole Blood 137 mg/dL (75-99)
[2016-09-02] MEDS: CHOLECALCIFEROL 1,000 UNIT TAB PO SCH (12:53)
[2016-09-02] MEDS: B COMPLEX-VIT C-VIT E-ZINC 1 EACH TAB PO SCH (12:53)
[2016-09-02] MEDS ORDERED: NA PHOS,M-B/NA PHOS,DI-BA 133 ML ENEMA RECTAL ONE (13:01)
[2016-09-02] MEDS: ALBUTEROL NEBULIZED 2.5 MG/3 ML INHALATION PRN (15:39)
--- NOTE | 2016-09-02 15:46 | P.CONS ---
History of Present Illness - History of Present Illness 85-year-old male was admitted for intractable pain as rib fractures 56 right ribs. Consultation for medical treatment. Patient is complaining constipation free cinemas been ordered. Patient states follow secondary to triple fall and steroid Review of Systems Gastrointestinal: Reports constipation Past Medical History Past Medical History: Heart Failure, COPD, Diabetes Mellitus, Hypertension Additional Past Medical History / Comment(s): recently on steroids and abx for bronchits."cyst on both kidneys", no cpap used, skin ca lip(removed), peptic ulcer disease, stated had episodes of ulcerative colitis in past but recently experiencing constipation. 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 Past Anesthesia/Blood Transfusion Reactions: Previous Problems w/ Anesthesia Additional Past Anesthesia/Blood Transfusion Reaction / Comm: "after a sx had trouble keeping bp up" Past Psychological History: No Psychological Hx Reported Additional Psychological History / Comment(s): PT IS A , IN 2013. PT LIVES IN OWN SINGLE STORY HOME THAT HAS 1 STEP IN WHICH TO ENTER. NO PERS. DOES'NT DRIVE. SON OR WIFES COUSIN TAKES HIM PLACES. NO OUTSIDE SERVICES. HAS NEBULIZER, CANE, WALKER AT HOME. Smoking Status: Former smoker Past Alcohol Use History: None Reported Additional Past Alcohol Use History / Comment(s): started smoking age 11-( 1942 ) and quit 1986 . started to chew tobacco in 1952 adarsh ge 21 and quit 2013. pt stated he is an alocoholic-quit 30 years ago(1986) Past Drug Use History: None Reported - Past Family History Father History Unknown: Yes Additional Family Medical History / Comment(s): pt stated he left home at age 13 never went back. Mother History Unknown: Yes Medications and Allergies Home Medications Medication Instructions Recorded Confirmed Type Albuterol Nebulized [Ventolin 2.5 mg INHALATION RT-QID PRN 06/15/16 09/01/16 History Nebulized] Atenolol [Tenormin] 25 mg PO BID 06/15/16 09/01/16 History Budesonide/Formoterol Fumarate 2 puff INHALATION RT-BID 06/15/16 09/01/16 History [Symbicort 160-4.5 Mcg Inhaler] Cholecalciferol [Vitamin D3] 2,000 unit PO DAILY 06/15/16 09/01/16 History Clopidogrel [Plavix] 75 mg PO DAILY 06/15/16 09/01/16 History LORazepam [Ativan] 1 mg PO TID 06/15/16 09/01/16 History Lactulose [Constulose] 20 gm PO BID 06/15/16 09/01/16 History Minocycline HCl [Minocin] 100 mg PO DAILY 06/15/16 09/01/16 History Simvastatin [Zocor] 20 mg PO HS 06/15/16 09/01/16 History Vitamin B Complex 1 cap PO DAILY 06/15/16 09/01/16 History metFORMIN HCL 1,000 mg PO BID 06/15/16 09/01/16 History Tamsulosin HCl [Flomax] 0.4 mg PO DAILY 07/01/16 09/01/16 History Finasteride [Proscar] 5 mg PO DAILY 09/01/16 09/01/16 History Furosemide [Lasix] 40 mg PO DAILY 09/01/16 09/01/16 History Allergies Allergy/AdvReac Type Severity Reaction Status Date / Time aspirin Allergy Unknown Verified 09/01/16 10:30 Physical Exam Vitals: Vital Signs Temp Pulse Resp BP Pulse Ox 09/02/16 15:00 96.7 F L 71 20 139/76 93 L 09/02/16 07:00 98.0 F 65 20 133/63 98 09/01/16 23:00 97.8 F 64 18 117/61 99 09/01/16 16:00 69 133/62 Intake and Output 09/02/16 09/02/16 09/02/16 06:59 14:59 22:59 Intake Total 200 Output Total 650 Balance -650 200 Intake: Oral 200 Output: Urine 650 Other: # Voids 1 2 # Bowel Movements 0 Weight 105.233 kg Patient Weight 09/03/16 06:59 Weight 105.233 kg - Constitutional General appearance: mild distress - EENT Eyes: PERRLA Ears: bilateral: normal - Neck Neck: normal ROM - Respiratory Respiratory: bilateral: CTA - Cardiovascular Rhythm: regular - Integumentary Integumentary: normal - Neurologic Neurologic: CNII-XII intact - Musculoskeletal Anterior right rib pain on palpation Musculoskeletal: generalized weakness - Psychiatric Psychiatric: A&O x's 3, appropriate affect, intact judgment & insight Results CBC & Chem 7: 09/01/16 12:15 09/01/16 12:15 Labs: Abnormal Lab Results - Last 24 Hours (Table) 09/01/16 09/01/16 09/02/16 Range/Units 17:01 21:11 07:26 POC Glucose (mg/dL) 134 H 165 H 107 H (75-99) mg/dL 09/02/16 Range/Units 11:49 POC Glucose (mg/dL) 137 H (75-99) mg/dL Chest x-ray: report reviewed CT Scan - head: report reviewed Assessment and Plan Plan: Assessment right rib 56 fracture secondary to fall constipation COPD diabetes type II hypertension Plan consultation with pain management and pulmonology will monitor diabetes and hypertension
[2016-09-02 17:18] LABS: Glucose,Whole Blood 127 mg/dL (75-99)
[2016-09-02] MEDS: SODIUM CHLORIDE 0.9% 1,000 ML IV SCH (17:29)
[2016-09-02 20:28] LABS: Glucose,Whole Blood 130 mg/dL (75-99)
[2016-09-02] MEDS: ATORVASTATIN 10 MG TAB PO SCH (21:48)
[2016-09-02] MEDS: ZOLPIDEM 5 MG TAB PO PRN ×2 (21:56→23:17)
[2016-09-02] MEDS: LORazepam 1 MG TAB PO PRN (22:07)
[2016-09-03] MEDS: MORPHINE SULFATE 4 MG/ML SYRINGE IV PRN (05:44)
[2016-09-03] MEDS: INSULIN LISPRO (humaLOG) 300 UNIT/3 ML VIAL SQ SCH ×4 (07:37→20:33)
[2016-09-03 07:42] LABS: Glucose,Whole Blood 117 mg/dL (75-99)
[2016-09-03] MEDS: SYMBICORT 160-4.5 MCG INHALER INHALATION SCH ×2 (08:13→19:47)
[2016-09-03] MEDS: ALBUTEROL NEBULIZED 2.5 MG/3 ML INHALATION PRN ×2 (08:14→15:36)
[2016-09-03] MEDS: ATENOLOL 25 MG TAB PO SCH ×2 (08:26→20:33)
[2016-09-03] MEDS: HYDROcodone/APAP 5-325MG 1 EACH TAB PO PRN ×2 (08:30→20:46)
[2016-09-03] MEDS: FINASTERIDE 5 MG TAB PO SCH (08:30)
[2016-09-03] MEDS: HEPARIN SODIUM,PORCINE 5,000 UNIT/ML 1 ML VIAL SQ SCH ×2 (08:30→20:33)
[2016-09-03] MEDS: MINOCYCLINE 50 MG CAP PO SCH (08:30)
[2016-09-03] MEDS: FUROSEMIDE 40 MG TAB PO SCH (08:30)
[2016-09-03] MEDS: metFORMIN 500 MG TAB PO SCH ×2 (08:30→20:33)
[2016-09-03] MEDS: TAMSULOSIN 0.4 MG CAP.ER.24H PO SCH (08:30)
--- NOTE | 2016-09-03 09:38 | P.PN ---
Subjective Principal diagnosis: This is a 85 years old male with acute chest wall pain secondary to right sideT5 and T6 rib s fracture, patient currently on Plavix, left being good candidate to have thoracic epidural catheter to help his pain control, and the intercostal nerve block will give him only short-term benefit for a few hours, and the best option at this point is to medication management, patient could benefit from Lidoderm patch 5% to be applied to the chest wall 12 hours on 12 hours off, so we can alternate with varying gel 2 g to be applied to the chest wall every 6 hours when necessary, Objective - Vital Signs Vital signs: Vital Signs Temp 98.9 F 09/03/16 07:00 Pulse 72 09/03/16 08:29 Resp 20 09/03/16 07:00 BP 109/51 09/03/16 07:00 Pulse Ox 97 09/03/16 07:00 Intake & Output 09/02/16 09/03/16 09/03/16 18:59 06:59 18:59 Intake Total 200 350 Output Total 1500 Balance 200 -1150 Weight 105.233 kg Intake: Oral 200 350 Output: Urine 1500 Other: # Voids 2 0 # Bowel Movements 1 - Labs CBC & Chem 7: 09/01/16 12:15 09/01/16 12:15 Labs: Abnormal Lab Results - Last 24 Hours (Table) 09/02/16 09/02/16 09/02/16 Range/Units 11:49 17:10 20:25 POC Glucose (mg/dL) 137 H 127 H 130 H (75-99) mg/dL 09/03/16 Range/Units 07:27 POC Glucose (mg/dL) 117 H (75-99) mg/dL
[2016-09-03] MEDS: LIDOCAINE 5% PATCH TOPICAL SCH (10:39)
[2016-09-03] MEDS: B COMPLEX-VIT C-VIT E-ZINC 1 EACH TAB PO SCH (11:57)
[2016-09-03] MEDS: CHOLECALCIFEROL 1,000 UNIT TAB PO SCH (11:57)
[2016-09-03 12:14] LABS: Glucose,Whole Blood 114 mg/dL (75-99)
--- NOTE | 2016-09-03 13:49 | P.PN ---
Subjective Principal diagnosis: Status post fall with rib fracture This a very pleasant 85-year-old gentleman who follows with Dr. Bebeto Gross as his primary care physician. He has a history of COPD, congestive heart failure , diabetes mellitus, hypertension, hyperlipidemia. He presented here on 2016 after sustaining a trip and fall. He hit his right chest against the door frame. He denied any loss of consciousness. His chest x-ray did reveal fractures to his right 5th and 6 ribs. He is seen and again today in follow- up. He is working well at the incentive spirometer pulling approximately 1000 mls. His pain is fairly well controlled. Obtaining good O2 saturations in the upper 90s on 2 L/m per nasal cannula. He's been afebrile. Objective - Vital Signs Vital signs: Vital Signs Temp 98.9 F 09/03/16 07:00 Pulse 72 09/03/16 08:29 Resp 20 09/03/16 07:00 BP 109/51 09/03/16 07:00 Pulse Ox 97 09/03/16 07:00 Intake & Output 09/02/16 09/03/16 09/03/16 18:59 06:59 18:59 Intake Total 200 350 160 Output Total 1500 500 Balance 200 -1150 -340 Weight 105.233 kg Intake: IV 160 Sodium Chloride 0.9% 1, 160 000 ml @ 20 mls/hr IV . Q24H [facility] Rx#:[id number] Oral 200 350 Output: Urine 1500 500 Other: # Voids 2 0 # Bowel Movements 1 0 - Exam GENERAL EXAM: Alert, active, comfortable in no apparent distress. HEAD: Normocephalic. EYES: Normal reaction of pupils, equal size. NOSE: Clear with pink turbinates. THROAT: No erythema or exudates. NECK: No masses, no JVD. CHEST: No chest wall deformity. LUNGS: Equal air entry with no crackles, wheeze, rhonchi or dullness. CVS: S1 and S2 normal with no audible mumurs, regular rhythm. ABDOMEN: No hepatosplenomegaly, normal bowel sounds, no guarding or rigidity. SPINE: No scoliosis or deformity SKIN: No rashes CENTRAL NERVOUS SYSTEM: No focal deficits, tone is normal in all 4 extremities. - Labs CBC & Chem 7: 09/01/16 12:15 09/01/16 12:15 Labs: Abnormal Lab Results - Last 24 Hours (Table) 09/02/16 09/02/16 09/03/16 Range/Units 17:10 20:25 07:27 POC Glucose (mg/dL) 127 H 130 H 117 H (75-99) mg/dL 09/03/16 Range/Units 12:06 POC Glucose (mg/dL) 114 H (75-99) mg/dL Assessment and Plan Plan: Impression: #1 Trauma to the right chest with fractures to the right fifth and sixth rib secondary to ground-level fall. #2 Hypertension. #3 Hyperlipidemia. #4 Diabetes mellitus. #5 Chronic obstructive disease. #6 History of congestive heart failure. Plan: The patient was seen and evaluated by Dr. Horan. His chest x-ray and labs were reviewed. We have again encourage increased use of the incentive spirometer and cough and deep breathing exercises. His pain is better controlled. He needs to be up ambulating with assistance and be up in the chair as much as possible. He could go home later today or possibly tomorrow morning. We'll continue to follow.
--- NOTE | 2016-09-03 15:41 | P.PN ---
Subjective Patient continues to complain of feeling for constipation did have a bowel movement. Continues with pain management in the pulmonology Objective - Vital Signs Vital signs: Vital Signs Temp 96.8 F L 09/03/16 15:00 Pulse 66 09/03/16 15:00 Resp 20 09/03/16 15:00 BP 102/47 09/03/16 15:00 Pulse Ox 97 09/03/16 15:00 Intake & Output 09/02/16 09/03/16 09/03/16 18:59 06:59 18:59 Intake Total 200 350 400 Output Total 1500 500 Balance 200 -1150 -100 Weight 105.233 kg Intake: IV 160 Sodium Chloride 0.9% 1, 160 000 ml @ 20 mls/hr IV . Q24H [facility] Rx#:[id number] Oral 200 350 240 Output: Urine 1500 500 Other: # Voids 2 0 # Bowel Movements 1 0 - Constitutional General appearance: Present: morbidly obese - EENT Eyes: Present: PERRLA Ears: bilateral: normal - Respiratory Respiratory: bilateral: CTA - Cardiovascular Rhythm: regular - Gastrointestinal General gastrointestinal: Present: soft - Integumentary Integumentary: Present: normal - Neurologic Neurologic: Present: CNII-XII intact - Musculoskeletal Musculoskeletal: Present: generalized weakness - Psychiatric Psychiatric: Present: A&O x's 3, appropriate affect, intact judgment & insight - Labs CBC & Chem 7: 09/01/16 12:15 09/01/16 12:15 Labs: Abnormal Lab Results - Last 24 Hours (Table) 09/02/16 09/02/16 09/03/16 Range/Units 17:10 20:25 07:27 POC Glucose (mg/dL) 127 H 130 H 117 H (75-99) mg/dL 09/03/16 Range/Units 12:06 POC Glucose (mg/dL) 114 H (75-99) mg/dL Assessment and Plan Plan: Assessment right rib fracture fifth and six anterior right side intractable pain constipation COPD diabetes type II hypertension Plan continues with the pain management pulmonology consultation continue to monitor patient condition
[2016-09-03 17:10] LABS: Glucose,Whole Blood 131 mg/dL (75-99)
--- NOTE | 2016-09-03 17:12 | XR ---
EXAMINATION TYPE: XR chest 2V DATE OF EXAM: 09/03/2016 1:28 PM COMPARISON: Prior chest x-ray 01 Sep 2016 HISTORY: Rib fracture TECHNIQUE: Frontal and lateral views of the chest are obtained. FINDINGS: There is some thickening along the right lateral pleural margin compatible with patient's history of fractures. There is no evident pneumothorax or pneumonia. Small pleural effusion or pneumo thorax is suspected on the right. There are coronary artery calcifications. Prominent lung volumes co mpatible with COPD. The heart is enlarged. IMPRESSION: There may be interval development of a small pneumothorax or pleural effusion.
[2016-09-03] MEDS: SODIUM CHLORIDE 0.9% 1,000 ML IV SCH (17:30)
[2016-09-03] MEDS: ATORVASTATIN 10 MG TAB PO SCH (20:33)
[2016-09-03 20:53] LABS: Glucose,Whole Blood 127 mg/dL (75-99)
[2016-09-03] MEDS: ZOLPIDEM 5 MG TAB PO PRN (22:19)
[2016-09-03] MEDS: DICLOFENAC SODIUM GEL 100 GM TUBE TOPICAL SCH (22:21)
[2016-09-04] MEDS: LORazepam 1 MG TAB PO PRN (03:59)
[2016-09-04] MEDS: ALBUTEROL NEBULIZED 2.5 MG/3 ML INHALATION PRN ×2 (07:33→19:35)
[2016-09-04] MEDS: SYMBICORT 160-4.5 MCG INHALER INHALATION SCH ×2 (07:33→19:35)
[2016-09-04 07:41] LABS: Glucose,Whole Blood 120 mg/dL (75-99)
[2016-09-04] MEDS: INSULIN LISPRO (humaLOG) 300 UNIT/3 ML VIAL SQ SCH ×4 (07:43→21:15)
[2016-09-04] MEDS: DICLOFENAC SODIUM GEL 100 GM TUBE TOPICAL SCH ×4 (08:43→21:02)
[2016-09-04] MEDS: FINASTERIDE 5 MG TAB PO SCH (08:43)
[2016-09-04] MEDS: FUROSEMIDE 40 MG TAB PO SCH (08:44)
[2016-09-04] MEDS: LIDOCAINE 5% PATCH TOPICAL SCH (08:44)
[2016-09-04] MEDS: ATENOLOL 25 MG TAB PO SCH ×2 (08:44→20:59)
[2016-09-04] MEDS: metFORMIN 500 MG TAB PO SCH ×2 (08:44→20:59)
[2016-09-04] MEDS: HEPARIN SODIUM,PORCINE 5,000 UNIT/ML 1 ML VIAL SQ SCH ×2 (08:44→20:58)
[2016-09-04] MEDS: MINOCYCLINE 50 MG CAP PO SCH (08:45)
[2016-09-04] MEDS: TAMSULOSIN 0.4 MG CAP.ER.24H PO SCH (08:45)
--- NOTE | 2016-09-04 09:10 | P.PN ---
Progress Note - Text The patient has complaints of right-sided chest pain. He states when he removes was a deep breath he has significant pain. His Lidoderm patch has minimal relief. On exam is vital signs are stable. He still has tenderness over his right chest wall. Abdomen soft nontender. Chest x-rays reviewed. There is a small pleural effusion. There is no pneumothorax. Significant chest wall tenderness after multiple right rib fractures. Patient is doing fairly well. His main complaint is pain. He may need transfer to [facility] prior to be discharged home.
[2016-09-04] MEDS: HYDROcodone/APAP 5-325MG 1 EACH TAB PO PRN ×3 (11:40→20:58)
[2016-09-04] MEDS: CHOLECALCIFEROL 1,000 UNIT TAB PO SCH (11:40)
[2016-09-04] MEDS: B COMPLEX-VIT C-VIT E-ZINC 1 EACH TAB PO SCH (11:40)
--- NOTE | 2016-09-04 12:14 | P.PN ---
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 Q24H [facility] Rx#:[id number] Oral 240 700 Output: Urine 500 1700 Other: Voiding Method Urinal # Voids 1 # Bowel Movements 1 1 - Constitutional General appearance: Present: morbidly obese - EENT Eyes: Present: PERRLA Ears: bilateral: normal - Neck Neck: Present: normal ROM - Respiratory Respiratory: bilateral: CTA - Cardiovascular Rhythm: regular - Gastrointestinal General gastrointestinal: Present: soft - Integumentary Integumentary: Present: normal - Neurologic Neurologic: Present: CNII-XII intact - Musculoskeletal Musculoskeletal: Present: generalized weakness - Psychiatric Psychiatric: Present: A&O x's 3, appropriate affect, intact judgment & insight - Labs CBC & Chem 7: 09/01/16 12:15 09/01/16 12:15 Labs: Abnormal Lab Results - Last 24 Hours (Table) 09/03/16 09/03/16 09/03/16 Range/Units 12:06 17:05 20:25 POC Glucose (mg/dL) 114 H 131 H 127 H (75-99) mg/dL 09/04/16 Range/Units 07:23 POC Glucose (mg/dL) 120 H (75-99) mg/dL Assessment and Plan Plan: Assessment Right rib fractures fifth and sixth intractable pain anterior right chest Constipation COPD Diabetes type 2 Hypertension Plan Continue consultation with pulmonology Pain management Medically stable
[2016-09-04 12:38] LABS: Glucose,Whole Blood 98 mg/dL (75-99)
--- NOTE | 2016-09-04 13:28 | P.PN ---
Progress Note - Text The patient sitting on his bed. He is complaints of right chest pain. He states he hurts when he gets up to use a walker. On exam is lesser stable. His abdomen soft. His right chest wall has slightly decreased tenderness. The patient is almost ready for discharge. He'll be sent to [facility] facility tomorrow.
--- NOTE | 2016-09-04 15:31 | PN ---
This is a very pleasant 85-year-old gentleman who had a ground-level fall. He sustained trauma to the right forehead and also to the right chest with fractured ribs on the right side at positions 5 and 6. He is doing relatively well. Does not appear to have any problems with a hemothorax or pulmonary contusion to any great extent. Suffers from hypertension, hyperlipidemia, diabetes as well as COPD and history of CHF. The patient is getting incentive spirometry and breathing treatments. Is feeling better. The big issue is pain control. Currently, temperature is 98.5, heart rate 70, respiratory rate 20, blood pressure 135/59, mean 84, 2 L saturation 98%. Appears in no acute distress. HEENT examination is grossly unremarkable. Mucous membranes are moist. No oral lesions. Neck is supple. Full range of motion. No adenopathy or thyromegaly. Cardiovascular examination reveals regular rhythm and rate. S1, S2 normal. Heart sounds are distant. Lungs reveal diminished breath sounds. A few scattered rhonchi. No wheezes or crackles. He still has tenderness in the right anterior lateral chest area above the fractured ribs. Abdomen is soft. Bowel sounds are heard. No masses or tenderness. The extremities are intact without cyanosis, clubbing or edema. Skin is without rash. Neurologic examination is nonfocal. He does have a small bruise above his right eye. ASSESSMENT: 1. Status post ground-level fall with fractured ribs on the right 5 and 6. 2. History of forehead contusion. 3. Hypertension. 4. Hyperlipidemia. 5. Diabetes. 6. Chronic obstructive pulmonary disease. 7. History of congestive heart failure. PLAN: Patient seems to be doing relatively well. Will continue to follow. His overall prognosis is good. Medications are reviewed. From the pulmonary standpoint, could be discharged home. Should have followup.
[2016-09-04] MEDS: SODIUM CHLORIDE 0.9% 1,000 ML IV SCH (15:57)
[2016-09-04 17:20] LABS: Glucose,Whole Blood 110 mg/dL (75-99)
[2016-09-04] MEDS: ATORVASTATIN 10 MG TAB PO SCH (20:59)
[2016-09-04 21:25] LABS: Glucose,Whole Blood 131 mg/dL (75-99)
[2016-09-05] MEDS: LORazepam 1 MG TAB PO PRN (00:43)
[2016-09-05] MEDS: ZOLPIDEM 5 MG TAB PO PRN (00:43)
[2016-09-05] MEDS: ALBUTEROL NEBULIZED 2.5 MG/3 ML INHALATION PRN ×3 (04:29→11:42)
[2016-09-05] MEDS: TAMSULOSIN 0.4 MG CAP.ER.24H PO SCH (07:34)
[2016-09-05] MEDS: HYDROcodone/APAP 5-325MG 1 EACH TAB PO PRN ×2 (07:34→11:15)
[2016-09-05] MEDS: MINOCYCLINE 50 MG CAP PO SCH (07:34)
[2016-09-05] MEDS: metFORMIN 500 MG TAB PO SCH (07:34)
[2016-09-05] MEDS: INSULIN LISPRO (humaLOG) 300 UNIT/3 ML VIAL SQ SCH ×2 (07:35→12:39)
[2016-09-05] MEDS: ATENOLOL 25 MG TAB PO SCH (07:35)
[2016-09-05] MEDS: DICLOFENAC SODIUM GEL 100 GM TUBE TOPICAL SCH ×2 (07:35→12:40)
[2016-09-05] MEDS: FUROSEMIDE 40 MG TAB PO SCH (07:35)
[2016-09-05] MEDS: HEPARIN SODIUM,PORCINE 5,000 UNIT/ML 1 ML VIAL SQ SCH (07:35)
[2016-09-05] MEDS: LIDOCAINE 5% PATCH TOPICAL SCH (07:35)
[2016-09-05] MEDS: FINASTERIDE 5 MG TAB PO SCH (07:35)
[2016-09-05 07:45] LABS: Glucose,Whole Blood 124 mg/dL (75-99)
[2016-09-05 08:05] VITALS: RESP 22
[2016-09-05] MEDS: SYMBICORT 160-4.5 MCG INHALER INHALATION SCH (08:32)
--- NOTE | 2016-09-05 10:49 | PN ---
This is an 85-year-old gentleman who sustained a ground-level fall causing a bruise to his right forehead area above his right eye as well as some fractured ribs on the right side at position 5 and 6. Doing relatively well. From my perspective, the patient could be discharged home. He is down to 2 L of nasal cannula with saturation 98%. Temperature 98.8, heart rate 76, respiratory rate 22. Looks wells. He does have a history of underlying hypertension, hyperlipidemia, diabetes as well as COPD and CHF. Again, vital signs include temperature 98.8, heart rate 76, respiratory rate 22, blood pressure 119/53, mean 75 and a 2 L saturation 98%. Appears in no acute distress. HEENT examination is grossly unremarkable. Mucous membranes are moist. No oral lesions. Neck is supple. Full range of motion. No adenopathy or thyromegaly. Cardiovascular examination reveals distant heart sounds. There a regular rhythm and rate. S1, S2 normal. Lungs reveal diminished breath sounds as well. A few scattered rhonchi. No wheezes or crackles. Abdominal examination is soft. Bowel sounds are heard. No masses or lesions. Extremities are intact without cyanosis, clubbing or edema. Skin is without rash. Neurological examination is ( ), but nonfocal. ASSESSMENT: 1. Status post ground level fall with fracture of ribs on the right side, rib number 5 and 6. 2. History of forehead contusion. 3. Hypertension. 4. Hyperlipidemia. 5. Diabetes. 6. History of chronic obstructive pulmonary disease. 7. History of congestive heart failure. PLAN: Medications are reviewed. The patient could be discharged home. Will continue to follow if he remains here.
[2016-09-05 12:09] LABS: Glucose,Whole Blood 132 mg/dL (75-99)
--- NOTE | 2016-09-05 12:29 | P.DS ---
Providers Date of admission: 09/01/16 12:14 Expected date of discharge: 09/05/16 Attending physician: Daniele Del Rosario Consults: 09/01/16 14:53 Consult Physician Urgent Consulting Provider: Bebeto Gross Consult Reason/Comments: medical management Do you want consulting provider notified?: Yes 09/01/16 19:46 Consult Physician Routine Consulting Provider: Magaly Carey Consult Reason/Comments: broken ribs Do you want consulting provider notified?: Yes Primary care physician: Bebeto Gross Hospital Course: This is a 85-year-old male who fell at home. Patient sustained several right rib fractures. Patient was admitted to the hospital for analgesia. Please see chart for details. Patient Condition at Discharge: Good Plan - Discharge Summary New Discharge Prescriptions: HYDROcodone/APAP 5-325MG [[place] 5-325] 1 each PO Q4HR PRN #20 tab PRN Reason: Moderate Pain LORazepam [Ativan] 1 mg PO TID #20 tab Discharge Medication List Atenolol [Tenormin] 25 mg PO BID 06/15/16 [History] Budesonide/Formoterol Fumarate [Symbicort 160-4.5 Mcg Inhaler] 2 puff INHALATION RT-BID 06/15/16 [History] Cholecalciferol [Vitamin D3] 2,000 unit PO DAILY 06/15/16 [History] Lactulose [Constulose] 20 gm PO BID 06/15/16 [History] Minocycline HCl [Minocin] 100 mg PO DAILY 06/15/16 [History] Simvastatin [Zocor] 20 mg PO HS 06/15/16 [History] Vitamin B Complex 1 cap PO DAILY 06/15/16 [History] metFORMIN HCL 1,000 mg PO BID 06/15/16 [History] Tamsulosin HCl [Flomax] 0.4 mg PO DAILY 07/01/16 [History] Finasteride [Proscar] 5 mg PO DAILY 09/01/16 [History] Furosemide [Lasix] 40 mg PO DAILY 09/01/16 [History] Acetaminophen Tab [Tylenol] 650 mg PO Q6HR PRN #0 tab 09/05/16 [Rx] Albuterol Nebulized [Ventolin Nebulized] 2.5 mg INHALATION RT-QID #0 09/05/16 [ Rx] Diclofenac Sodium Gel [Voltaren Gel] 2 gm TOPICAL QID tube 09/05/16 [Rx] HYDROcodone/APAP 5-325MG [[place] 5-325] 1 each PO Q4HR PRN #20 tab 09/05/16 [Rx] LORazepam [Ativan] 1 mg PO TID #20 tab 09/05/16 [Rx] Follow up Appointment(s)/Referral(s): Bebeto Gross MD [Primary Care Provider] - 3 Days (After DC from [facility]) Tushar Cm MD [STAFF PHYSICIAN] - 3 Days (At [facility]) Salty Horan DO [Doctor of Osteopathic Medicine] - 2 Weeks Activity/Diet/Wound Care/Special Instructions: [facility] plavix as per surgery CBC, BMP in 3 days Diet: Cardiac Discharge Disposition: TRANSFER TO SNF/ECF
[2016-09-05] MEDS: B COMPLEX-VIT C-VIT E-ZINC 1 EACH TAB PO SCH (12:39)
[2016-09-05] MEDS: CHOLECALCIFEROL 1,000 UNIT TAB PO SCH (12:39)
[2016-09-05] MEDS ORDERED: BISACODYL 10 MG SUPP RECTAL STA (14:43)
[2016-09-05 15:29] VITALS: BP 123/60; PULSE 68; TEMP 97.8
--- NOTE | 2016-09-05 18:02 | PN ---
I am covering for Dr. Bebeto Gross. HISTORY OF PRESENT ILLNESS: This 85-year-old gentleman with a past medical history of multiple medical problems, admitted after ground level fall as well as fractures of the ribs 5 and 6 on the right side. Patient was complaining of severe pain. Patient is also having constipation and gait dysfunction. [facility] rehab is being planned at this time. Past medical history reviewed. REVIEW OF SYSTEMS: CARDIOVASCULAR SYSTEM: No angina, palpitations. RESPIRATORY SYSTEM: As mentioned earlier. GI: As mentioned earlier. : No dysuria. NERVOUS SYSTEM: No numbness or weakness. Current medications are reviewed and include: 1. Tylenol 650 q.6 p.r.n. 2. [place] 5 mg q.4 p.r.n. 3. Ventolin 2.5 q.i.d. p.r.n. 4. Tenormin 25 mg b.i.d. 5. Lipitor 20 mg at bedtime. 6. Vitamin D3 2000 daily. 7. Voltaren 2 mg p.o. 8. Proscar 5 mg p.o. daily. 9. Lasix 40 mg p.o. daily. 10. Cephulac 20 grams p.o. b.i.d. 11. Ativan 1 mg p.o. t.i.d. p.r.n. 12. Glucophage 1000 mg p.o. b.i.d. 13. Minocin 100 mg p.o. daily. 14. Narcan 0.2 q.2 p.r.n. 15. Zofran 4 mg q.8 p.r.n. 16. Flomax 0.4 daily. 17. Vitamin 1 p.o. daily. 18. Ambien 5 mg p.o. at bedtime p.r.n. PHYSICAL EXAMINATION: Patient is alert and oriented x3. Pulse is 76, blood pressure 119/53, respiration 22, temperature 98.8, pulse ox 98% on 2 L. HEENT: Conjunctivae normal. Oral mucosa moist. NECK: No jugular venous distention. No carotid bruit. No lymph node enlargement. CARDIOVASCULAR SYSTEM: S1, S2 muffled. No S3. No S4. RESPIRATORY SYSTEM: Breath sounds diminished at the bases. Scattered rhonchi and crackles. ABDOMEN: Soft, nontender. LEGS: No edema. No swelling. NERVOUS SYSTEM: No focal deficit. LABS: WBC 10.5, hemoglobin 10.3. Glucose noted. ASSESSMENT: 1. Status post fall and fractured ribs on the right, 5 and 6. 2. Constipation. 3. Chronic obstructive pulmonary disease history. 4. Diabetes mellitus, type 2. 5. Hypertension. 6. Gait dysfunction. 7. Hyponatremia. 8. Obesity; body mass index of 37.4. 9. History of congestive heart failure. 10. History of hypertension. 11. History of chronic obstructive pulmonary disease. 12. History of kidney cyst. 13. History of peptic ulcer disease. 14. History of ulcerative colitis remotely. 15. Remote history of nicotine dependence. 16. FULL CODE. RECOMMENDATIONS AND DISCUSSION: In this 85-year-old gentleman who presented with multiple complex medical issues, we will monitor the patient closely, continue the current medications, continue with symptomatic treatment. The medications were reconciled. The following medications will be recommended. I also recommend close followup with Dr. Cm in [facility] and followup with Dr. Gross in 2 to 3 days. Follow up with Dr. Horan as well as Dr. Del Rosario as recommended. MEDICATIONS: 1. Tylenol 650 q.6 p.r.n. 2. Albuterol 2.5 q.i.d. and p.r.n. 3. Tenormin 25 mg p.o. b.i.d. 4. Symbicort 164/4.5 two puffs b.i.d. 5. Vitamin D3 2000 daily. 6. Voltaren gel 2 grams topically. 7. Proscar 5 mg p.o. daily. 8. Lasix 40 mg p.o. daily. 9. [place] 5 mg q.4 p.r.n. 10. Ativan 0.5 mg p.o. t.i.d. p.r.n. 11. Lactulose 20 grams p.o. b.i.d. 12. Minocin 100 mg p.o. daily. 13. Zocor 20 mg at bedtime. 14. Flomax 0.4 daily. 15. Vitamin B complex 1 p.o. daily. 16. Metformin 1000 mg p.o. b.i.d. Once again, the patient will be discharged in stable condition with guarded prognosis. MTDD
== END 2016-09-05 15:26 | DRG 184 ==
LOC: EC 09:56 → 4MS4W 12:14
PROVIDERS: ADMIT Surgery; ATTEND Surgery
DX: S22.41XA Multiple fractures of ribs, right side, initial encounter for closed fracture (principal); E87.1 Hypo-osmolality and hyponatremia; J44.9 Chronic obstructive pulmonary disease, unspecified; I50.9 Heart failure, unspecified; I11.0 Hypertensive heart disease with heart failure; R53.1 Weakness; K59.09 Other constipation; S00.83XA Contusion of other part of head, initial encounter; R26.9 Unspecified abnormalities of gait and mobility; E78.5 Hyperlipidemia, unspecified; N28.1 Cyst of kidney, acquired; E66.01 Morbid (severe) obesity due to excess calories; F10.20 Alcohol dependence, uncomplicated; I25.2 Old myocardial infarction; E11.9 Type 2 diabetes mellitus without complications; Z96.1 Presence of intraocular lens; Z87.891 Personal history of nicotine dependence; Z79.02 Long term (current) use of antithrombotics/antiplatelets; Z79.899 Other long term (current) drug therapy; Z79.84 Long term (current) use of oral hypoglycemic drugs; Z87.11 Personal history of peptic ulcer disease; Z88.6 Allergy status to analgesic agent; Z68.37 Body mass index [BMI] 37.0-37.9, adult; Z79.51 Long term (current) use of inhaled steroids; Z71.3 Dietary counseling and surveillance; Z98.49 Cataract extraction status, unspecified eye; Z90.79 Acquired absence of other genital organ(s); Z85.828 Personal history of other malignant neoplasm of skin; Z86.010 Personal history of colon polyps; Z86.19 Personal history of other infectious and parasitic diseases; Z87.09 Personal history of other diseases of the respiratory system; Z86.79 Personal history of other diseases of the circulatory system; Z87.19 Personal history of other diseases of the digestive system; W01.198A Fall on same level from slipping, tripping and stumbling with subsequent striking against other object, initial encounter; Y93.01 Activity, walking, marching and hiking; Y92.019 Unspecified place in single-family (private) house as the place of occurrence of the external cause
CPT/HCPCS: 36415; 70450; 71020; 72170; 80048; 83036; 85025; 85610; 85730; 93005; 94640; 94760; 96374; 99285